=== PATIENT | female | born 1980 | race Caucasian/White ===

== ENCOUNTER 2017-05-08 06:46 | Inpatient (IN) | payer MEDICAID, OTHER ==
[2017-05-05 14:51] VITALS: BMI 28.4
[~2017-05-08] VITALS: Ht 160 cm; Wt 68.7 kg
[~2017-05-08 06:46] MED LIST: CEFAZOLIN 2 GM/50 ML (PMX) 50 ML IVPB SCH; GLIP-95 PO; LISI2.5T59 PO; METF1000 PO; SOD CHLORIDE 0.9% 1,000 ML IV SCH
[2017-05-08 07:35] LABS: BASOPHILS % 0.6 % (0.0-2.0); EOSINOPHILS % 0.6 % (0.0-7.0); HEMATOCRIT 32.7 % (37.0-47.0); HEMOGLOBIN 10.1 g/dl (12.0-16.0); LYMPHOCYTES # 1.3 10^3/ul (0.8-2.9); LYMPHOCYTES % 19.4 % (15.0-51.0); MEAN CORPUSCULAR HEMOGLOBIN 22.9 pg (29.0-33.0); MEAN CORPUSCULAR HGB CONC 30.9 g/dl (32.0-37.0); MEAN CORPUSCULAR VOLUME 74.1 fl (82.0-101.0); MEAN PLATELET VOLUME 10.4 fl (7.4-10.4); MONOCYTE # 0.6 10^3/ul (0.3-0.9); MONOCYTES % 9.1 % (0.0-11.0); NEUTROPHIL # 4.5 10^3/ul (1.6-7.5); NEUTROPHILS % 69.5 % (39.0-77.0); PLATELET COUNT 261 10^3/UL (140-415); RED BLOOD COUNT 4.41 10^6/ul (4.20-5.40); RED CELL DISTRIBUTION WIDTH 14.3 % (11.5-14.5); WHITE BLOOD COUNT 6.5 10^3/ul (4.8-10.8)
[2017-05-08 07:45] VITALS: Ht 160 cm; Wt 68.7 kg
[2017-05-08 07:50] VITALS: BP 119/80; PULSE 76; RESP 16
[2017-05-08 07:51] LABS: INR 0.87; PARTIAL THROMBOPLASTIN TIME 30.4 Sec (25.0-35.0); PROTIME 11.8 Sec (12.2-14.2); PT RATIO 0.9
[2017-05-08 07:56] LABS: ALBUMIN 4.3 g/dl (3.3-4.9); ALBUMIN/GLOBULIN RATIO 1.22; BILIRUBIN,INDIRECT 0.5 mg/dl (0-1.1); BILIRUBIN,TOTAL 0.5 mg/dl (0.2-1.3); TOTAL PROTEIN 7.8 g/dl (6.1-8.1)
[2017-05-08 08:02] LABS: CALCIUM 9.2 mg/dl (8.4-10.2); CREATININE 0.57 mg/dl (0.44-1.00); POTASSIUM 3.8 mmol/L (3.5-5.1)
[2017-05-08] MEDS ORDERED: INSULIN ASPART [NOVOLOG] 3 ML PEN SC ONE (08:10)
[2017-05-08] MEDS: morphine 2 MG INJ IV PRN ×2 (09:42→20:16)
[2017-05-08] MEDS ORDERED: ACETAMINOPHEN 500 MG TAB PO PRN (10:00)
[2017-05-08 12:13] VITALS: BP 116/69; RESP 16
[2017-05-08] MEDS ORDERED: GLUCOSE GEL 15 GRAM TUBE PO PRN ×2 (13:30)
[2017-05-08] MEDS ORDERED: DEXTROSE 50% 50 ML SYRINGE IV PRN ×2 (13:30)
[2017-05-08] MEDS ORDERED: ACETAMINOPHEN 325 MG TAB PO PRN (13:30)
[2017-05-08] MEDS ORDERED: ONDANSETRON 4 MG INJ IV PRN (13:30)
[2017-05-08] MEDS ORDERED: GLUCAGON 1 MG INJ IM PRN (13:30)
[2017-05-08] MEDS ORDERED: DOCUSATE SODIUM 100 MG CAP PO PRN (13:30)
[2017-05-08] MEDS ORDERED: GLUCOSE GEL 15 GRAM TUBE BUCCAL PRN (13:30)
--- NOTE | 2017-05-08 14:04 | HP ---
DATE OF ADMISSION: 05/08/2017 HISTORY OF PRESENT ILLNESS: The patient is a 37-year-old female, with diabetes which was controlled with metformin and glipizide. The patient was diagnosed with abdominal hernia and was scheduled to undergo hernia repair by Dr. Becerril. However, patient is noted to have elevated blood glucose at 294 on BNP with repeat fingerstick 323 and patient surgery was canceled and the patient was admitted for further evaluation and management to medical surgical floor. The patient denies any nausea, denies any fever or chills. Denies any chest pain, denies any shortness of breath. Denies diarrhea. PAST MEDICAL HISTORY: Positive for diabetes. PAST SURGICAL HISTORY: Patient status post-cholecystectomy fifteen years ago. FAMILY HISTORY: Patient has a mother with diabetes. SOCIAL HISTORY: Patient denies any tobacco use. Denies any alcohol use. Denies any illicit drug use. Patient lives at home with her . ALLERGIES: NO KNOWN ALLERGIES. MEDICATIONS: Include metformin, glipizide, and lisinopril. REVIEW OF SYSTEMS: Twelve point review of system is negative unless what is mentioned in HPI. PHYSICAL EXAMINATION: GENERAL: Well-developed, well-nourished female, currently is awake, alert in no acute distress. VITAL SIGNS: Temperature is 98.2, pulse is 75, blood pressure is 116/69, respiratory rate 16. Oxygen saturation 99 percent on room air. HEENT: Head is atraumatic, normocephalic. Pupils equal, round, reactive to light and accommodation. Oral mucosa is pink and moist. NECK: Supple. No cervical lymphadenopathy. No thyromegaly. CHEST: Lungs clear bilaterally. There is no rhonchi, wheezes, rales noted. CARDIOVASCULAR: Normal S1, S2. No murmurs, gallops, clicks, rubs noted. ABDOMEN: Round, soft, nondistended, nontender. Bowel sounds present. EXTREMITIES: No edema, clubbing, cyanosis. Pulses equal bilaterally 2+. SKIN: No rash. No petechiae noted. NEUROLOGICAL: Patient is awake, alert, and oriented x4. No focal deficits noted. Motor strength is 5/5 in all extremities. LABORATORY DATA: On admission CBC white blood cells 6.5, hemoglobin 10.1, hematocrit 32.7, platelets 261,000. CHEMISTRY: Sodium is 135, potassium 3.8, chloride 100, carbon dioxide 25, anion gap 13, BUN is 15, creatinine 0.58. Glucose 294. AST is 14, ALT 31, alkaline phosphate is 101. ASSESSMENT: Hyperglycemia in patient with diabetes. PLAN: We will up date hemoglobin A1c. The patient on 1800 ADA. ADA diet. Will control NovoLog per moderate sliding scale. Continue metformin. Lab date will obtain diabetes diabetic education consult. Further recommendations based on clinical course. Plan of care discussed with Dr. Schilling. DICTATED BY: Stefani Saha NP. Dictated By: Stefani Saha NP /[email or web address] /Document#: [id number]
[2017-05-08 14:15] VITALS: BP 103/57; RESP 16
[2017-05-08] MEDS: INSULIN ASPART [NOVOLOG] 3 ML PEN SC SCH ×5 (14:55→20:17)
[2017-05-08] MEDS: SOD CHLORIDE 0.9% 1,000 ML IV SCH (14:58)
[2017-05-08] MEDS: metFORMIN 500 MG TAB PO SCH (17:35)
[2017-05-08] MEDS ORDERED: INSULIN ASPART [NOVOLOG] 3 ML PEN SC SCH (18:00)
[2017-05-08 19:34] VITALS: BP 121/77; RESP 20
[2017-05-08] MEDS: FAMOTIDINE 20 MG TAB PO SCH (20:16)
[2017-05-09] MEDS ORDERED: ACCU-CHEK XX SCH ×3 (02:00)
[2017-05-09 02:09] VITALS: BP 117/73; RESP 20
[2017-05-09 05:27] LABS: BASOPHILS % 0.7 % (0.0-2.0); EOSINOPHILS # 0.1 10^3/ul (0.0-0.5); EOSINOPHILS % 1.9 % (0.0-7.0); HEMATOCRIT 31.8 % (37.0-47.0); HEMOGLOBIN 9.5 g/dl (12.0-16.0); LYMPHOCYTES # 1.7 10^3/ul (0.8-2.9); LYMPHOCYTES % 29.7 % (15.0-51.0); MEAN CORPUSCULAR HEMOGLOBIN 22.8 pg (29.0-33.0); MEAN CORPUSCULAR HGB CONC 29.9 g/dl (32.0-37.0); MEAN CORPUSCULAR VOLUME 76.3 fl (82.0-101.0); MEAN PLATELET VOLUME 10.1 fl (7.4-10.4); MONOCYTE # 0.6 10^3/ul (0.3-0.9); MONOCYTES % 10.1 % (0.0-11.0); NEUTROPHIL # 3.2 10^3/ul (1.6-7.5); NEUTROPHILS % 57.1 % (39.0-77.0); PLATELET COUNT 240 10^3/UL (140-415); RED BLOOD COUNT 4.17 10^6/ul (4.20-5.40); RED CELL DISTRIBUTION WIDTH 14.5 % (11.5-14.5); WHITE BLOOD COUNT 5.7 10^3/ul (4.8-10.8)
[2017-05-09] MEDS: SOD CHLORIDE 0.9% 1,000 ML IV SCH ×3 (05:30→15:47)
[2017-05-09 06:38] LABS: ALBUMIN 3.7 g/dl (3.3-4.9); ALBUMIN/GLOBULIN RATIO 1.23; BILIRUBIN,INDIRECT 0.4 mg/dl (0-1.1); BILIRUBIN,TOTAL 0.4 mg/dl (0.2-1.3); CALCIUM 8.7 mg/dl (8.4-10.2); CREATININE 0.63 mg/dl (0.44-1.00); POTASSIUM 4.1 mmol/L (3.5-5.1); TOTAL PROTEIN 6.7 g/dl (6.1-8.1)
[2017-05-09 07:38] VITALS: BP 132/82; RESP 16
[2017-05-09] MEDS: metFORMIN 500 MG TAB PO SCH ×2 (07:52→17:39)
[2017-05-09] MEDS: INSULIN ASPART [NOVOLOG] 3 ML PEN SC SCH ×7 (07:58→20:30)
[2017-05-09] MEDS ORDERED: glipiZIDE 10 MG TAB PO SCH (08:00)
[2017-05-09] MEDS ORDERED: INSULIN GLARGINE [LANtus] 3 ML PEN SC SCH (08:00)
[2017-05-09] MEDS: FAMOTIDINE 20 MG TAB PO SCH ×2 (08:23→20:31)
--- NOTE | 2017-05-09 13:17 | EN ---
Date/Time of Note Date/Time of Note DATE: 05/09/17 TIME: 13:16 Event Note Endocrinology Endocrinology Event Note 37-year-old common-law woman with a history of diabetes mellitus type 2 on metformin at home without other agents. Admitted for elective surgery and found to be quite hyperglycemic. Attempted to interview the patient however at this particular moment she declines to be interviewed once to speak to her partner/spouse over the phone. She asked that I returned later. BRIDGETTE NAIR MD May 09, 2017 13:17
[2017-05-09 13:43] VITALS: BP 115/78
[2017-05-09] MEDS: ACCU-CHEK XX SCH ×2 (14:24→19:50)
--- NOTE | 2017-05-09 15:30 | PN ---
Date/Time of Note Date/Time of Note DATE: 05/09/17 TIME: 15:23 Assessment/Plan VTE Prophylaxis VTE Prophylaxis Intervention: SCD's Lines/Catheters IV [facility] Peripheral IV Assessment/Plan Chief Complaint/Hosp Course Improved blood sugar, patient denies any nausea vomiting. Patient is informed about diabetic specialist consult. Problems: Assessment/Plan -Poorly controlled diabetes mellitus hyperglycemia, hemoglobin A1c 10.9. Dr. Jiang is asked to see patient in endocrinology consultation. Continue metformin , Lantus, pre-meal NovoLog, NovoLog per sliding scale. -Left lower quadrant abdominal wall hernia, patient is admitted for hernia repair with Dr. Becerril, however, surgery was canceled due to hyperglycemia. Further recommendations based on clinical course. Plan of care discussed with Dr. Schilling. Exam/Review of Systems Vital Signs Vitals Vital Signs Date Time Temp Pulse Resp B/P Pulse Ox O2 Delivery O2 Flow Rate FiO2 05/09/17 13:43 98.8 78 115/78 05/09/17 07:38 16 100 05/08/17 07:50 Room Air Intake and Output 05/08/17 05/08/17 05/09/17 15:00 23:00 07:00 Intake Total 1160 ml 600 ml Balance 1160 ml 600 ml Exam Constitutional: alert, oriented Neck: supple Respiratory: normal air movement Cardiovascular: nl pulses Gastrointestinal: non-tender, other (Abdominal wall hernia), soft Extremities: normal pulses Results Result Diagram: 05/09/17 0508 05/09/17 0508 Results 24 hrs Laboratory Tests Test 05/08/17 17:33 05/08/17 20:14 05/09/17 04:02 05/09/17 05:08 Bedside Glucose 193 249 H 191 White Blood Count 5.7 Red Blood Count 4.17 L Hemoglobin 9.5 L Hematocrit 31.8 L Mean Corpuscular Volume 76.3 L Mean Corpuscular Hemoglobin 22.8 L Mean Corpuscular Hemoglobin Concent 29.9 L Red Cell Distribution Width 14.5 Platelet Count 240 Mean Platelet Volume 10.1 Neutrophils % 57.1 Lymphocytes % 29.7 Monocytes % 10.1 Eosinophils % 1.9 Basophils % 0.7 Nucleated Red Blood Cells % 0.0 Neutrophils # 3.2 Lymphocytes # 1.7 Monocytes # 0.6 Eosinophils # 0.1 Basophils # 0.0 Nucleated Red Blood Cells # 0.0 Sodium Level 135 Potassium Level 4.1 Chloride Level 104 Carbon Dioxide Level 26 Anion Gap 9 # Blood Urea Nitrogen 11 Creatinine 0.63 Glucose Level 223 H Calcium Level 8.7 Total Bilirubin 0.4 Direct Bilirubin 0.00 Indirect Bilirubin 0.4 Aspartate Amino Transf (AST/SGOT) 14 L Alanine Aminotransferase (ALT/SGPT) 31 Alkaline Phosphatase 68 Total Protein 6.7 # Albumin 3.7 Globulin 3.00 Albumin/Globulin Ratio 1.23 Test 05/09/17 07:47 05/09/17 11:52 05/09/17 14:17 Bedside Glucose 221 H 158 169 Medications Medications Current Medications Morphine Sulfate (morphine) 2 mg Q3 PRN IV PAIN LEVEL 8-10 Last administered on 05/08/17 09:42; Admin Dose 2 MG; Start 05/08/17 at 09:35 Acetaminophen/ Hydrocodone Bitart ([place] (5/325)) 1 tab Q4H PRN PO PAIN LEVEL 4 -7; Start 05/08/17 at 10:00 Acetaminophen (Tylenol Tab) 500 mg Q4H PRN PO PAIN AND OR ELEVATED TEMP; Start 05/08/17 at 10:00 Miscellaneous Information 1 ea NOTE XX ; Start 05/08/17 at 13:30 Glucose (Glutose) 15 gm Q15M PRN PO DECREASED GLUCOSE; Start 05/08/17 at 13:30 Glucose (Glutose) 22.5 gm Q15M PRN PO DECREASED GLUCOSE; Start 05/08/17 at 13: 30 Dextrose (D50w Syringe) 25 ml Q15M PRN IV DECREASED GLUCOSE; Start 05/08/17 at 13:30 Dextrose (D50w Syringe) 50 ml Q15M PRN IV DECREASED GLUCOSE; Start 05/08/17 at 13:30 Glucagon (Glucagen) 1 mg Q15M PRN IM DECREASED GLUCOSE; Start 05/08/17 at 13:30 Glucose 15 gm 15 gm Q15M PRN BUCCAL DECREASED GLUCOSE; Start 05/08/17 at 13:30 Sodium Chloride (NS) 1,000 ml @ 40 mls/hr Q24H IV Last administered on 14:58; Admin Dose 40 MLS/HR; Start 05/08/17 at 13:11 Ondansetron HCl (Zofran Inj) 4 mg Q6H PRN IV NAUSEA AND/OR VOMITING; Start at 13:30 Acetaminophen (Tylenol Tab) 650 mg Q6H PRN PO PAIN LEVEL 1-3 OR FEVER; Start at 13:30 Morphine Sulfate (morphine) 2 mg Q4H PRN IV SEVERE PAIN LEVEL 7-10 Last administered on 05/08/17 20:16; Admin Dose 2 MG; Start 05/08/17 at 13:30 Docusate Sodium (Colace) 100 mg Q12H PRN PO CONSTIPATION; Start 05/08/17 at 13: 30 Famotidine (Pepcid) 20 mg Q12 PO Last administered on 05/09/17 08:23; Admin Dose 20 MG; Start 05/08/17 at 21:00 Diagnostic Test (Pha) (Accu-Chek) 1 ea 02 XX ; Start 05/10/17 at 02:00 Insulin Glargine (Lantus) 14 unit DAILY@08 SC ; Start 05/10/17 at 08:00 Diagnostic Test (Pha) (Accu-Chek) 1 ea 02 XX ; Start 05/10/17 at 02:00 RADHA POTTS May 09, 2017 15:30
--- NOTE | 2017-05-09 19:09 | CONS ---
Date/Time of Note Date/Time of Note DATE: 05/09/17 TIME: 18:53 Assessment/Plan Assessment/Plan Problems: (1) Pre-op evaluation Status: Acute Comment: This patient's sugar at the time of admission was out of control and therefore surgery was canceled in the direction of general surgery and I suspect with the input from anesthesia. Getting her sugars under control is actually relatively straightforward however her A1c is above 9 and I am not certain whether or not anesthesia will allow her to proceed with surgery. Her under a stable regimen and then it can be decided by the general surgeon and anesthesiologist when they want to operate on her. 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 I do not have access to the more recent CT scans to no more on these details. However if I assume that this information is absolutely correct then is reasonable to assume that all he can she have some degree of insulin insufficiency and therefore should be on combination therapy supplementing with insulin but she also may have pancreatic exocrine insufficiency and the attendant complications thereof. The traditional test is a fecal elastase 1 test however that is not part of our routine laboratory testing at this facility. I will order the other tests to evaluate this as well as look for any vitamin deficiencies. (3) Diabetes mellitus type 2 in nonobese Status: Chronic Comment: Her control is inadequate. Use of the secretory grog insulin with metformin is not inappropriate. Given the prior history of pancreatitis I would avoid GLP-1 drugs and DPP for drugs. Supplementing with insulin on as combination would be an appropriate maneuver in this setting. We do need to make sure she does have adequate pancreatic exocrine function. Consultation Date/Type/Reason Admit Date/Time May 08, 2017 at 09:10 Date of Consultation: May 09, 2017 Type of Consultation: Endocrinology Reason for Consultation Diabetes mellitus type 2 10 years duration out of control with admission A1c of 10.9 Referring Provider: SANDY LAUREN MD Hx of Present Illness 37-year-old female who recently moved here from the [facility] of [place]. She has a left lower quadrant abdominal wall incisional hernia she was electively scheduled for surgery. She had seen her regular primary care physician Dr. Clara Mina of [facility] 1 time. To the best of the patient's knowledge no labs were done. She had been diagnosed with this hernia at a hospital in [place]. She had also been seen by emergency room at [facility]. Again it is unclear on whether or not sugars were tested. The patient is unaware of what an A1c test is. She reports she done home blood glucose monitoring and her sugars have been consistently above 300. Constitutional: no complaints (Eyes fevers chills or sweats) Eyes: other (On blurring of vision at distance) ENT: no complaints Respiratory: no complaints Cardiovascular: no complaints Gastrointestinal: other (Note sometimes loose stool with fatty globules), pain (Left lower quadrant pain) Genitourinary: no complaints Musculoskeletal: no complaints Skin: no complaints Neurologic: no complaints Endocrine: polydypsia, polyuria Immunologic: no complaints Past Medical History 1) diabetes mellitus type 2; 2) history of gallstone pancreatitis with partial pancreatectomy; 3) abdominal wall left lower quadrant incisional hernia; 4) borderline elevation of blood pressure: 5) Ab0: 6) usual childhood diseases; 7) history of Varicella Medications; metformin 1 g twice daily, glipizide 10 mg twice daily, lisinopril 2.5 mg once a day. Allergies; no known medical allergies Past Surgical History 1) status post open cholecystectomy for gallstone pancreatitis with complications of peritonitis 2001: 2) status post partial pancreatectomy Family History Significant Family History: diabetes, hypertension Social History Alcohol Use: rarely Smoking Status: Never smoker Drug Use: none Exam/Review of Systems Vital Signs Vitals Vital Signs Date Time Temp Pulse Resp B/P Pulse Ox O2 Delivery O2 Flow Rate FiO2 05/09/17 13:43 98.8 78 115/78 05/09/17 07:38 16 100 05/08/17 07:50 Room Air Intake and Output 05/08/17 05/08/17 05/09/17 15:00 23:00 07:00 Intake Total 1160 ml 600 ml Balance 1160 ml 600 ml Exam Constitutional: alert, oriented Neck: non-tender, supple Respiratory: clear to auscultation, normal air movement Cardiovascular: nl pulses, regular rate and rhythm Gastrointestinal: nl liver, spleen, non-tender, other (Multiple abdominal scars including an upper scar the tremor transverses from the right to the left above the umbilicus in the sub-xiphoid space. In addition there are multiple other ports. There is a left lower quadrant abdominal ventral hernia at the site of 1 of the surgical scars), soft Musculoskeletal: nl extremities to inspection, nl gait and stance Extremities: normal pulses Neurological: [employer] II-XII intact, nl mental status, nl speech, nl strength Skin: nl turgor Results Result Diagram: 05/09/17 0508 05/09/17 0508 Results 24 hrs Laboratory Tests Test 05/08/17 20:14 05/09/17 04:02 05/09/17 05:08 05/09/17 07:47 Bedside Glucose 249 H 191 221 H White Blood Count 5.7 Red Blood Count 4.17 L Hemoglobin 9.5 L Hematocrit 31.8 L Mean Corpuscular Volume 76.3 L Mean Corpuscular Hemoglobin 22.8 L Mean Corpuscular Hemoglobin Concent 29.9 L Red Cell Distribution Width 14.5 Platelet Count 240 Mean Platelet Volume 10.1 Neutrophils % 57.1 Lymphocytes % 29.7 Monocytes % 10.1 Eosinophils % 1.9 Basophils % 0.7 Nucleated Red Blood Cells % 0.0 Neutrophils # 3.2 Lymphocytes # 1.7 Monocytes # 0.6 Eosinophils # 0.1 Basophils # 0.0 Nucleated Red Blood Cells # 0.0 Sodium Level 135 Potassium Level 4.1 Chloride Level 104 Carbon Dioxide Level 26 Anion Gap 9 # Blood Urea Nitrogen 11 Creatinine 0.63 Glucose Level 223 H Calcium Level 8.7 Total Bilirubin 0.4 Direct Bilirubin 0.00 Indirect Bilirubin 0.4 Aspartate Amino Transf (AST/SGOT) 14 L Alanine Aminotransferase (ALT/SGPT) 31 Alkaline Phosphatase 68 Total Protein 6.7 # Albumin 3.7 Globulin 3.00 Albumin/Globulin Ratio 1.23 Test 05/09/17 11:52 05/09/17 14:17 05/09/17 17:30 Bedside Glucose 158 169 161 Medications Medications Current Medications Morphine Sulfate (morphine) 2 mg Q3 PRN IV PAIN LEVEL 8-10 Last administered on 05/08/17t 09:42; Admin Dose 2 MG; Start 05/08/17 at 09:35 Acetaminophen/ Hydrocodone Bitart ([place] (5/325)) 1 tab Q4H PRN PO PAIN LEVEL 4 -7; Start 05/08/17 at 10:00 Acetaminophen (Tylenol Tab) 500 mg Q4H PRN PO PAIN AND OR ELEVATED TEMP; Start 05/08/17 at 10:00 Miscellaneous Information 1 ea NOTE XX ; Start 05/08/17 at 13:30 Glucose (Glutose) 15 gm Q15M PRN PO DECREASED GLUCOSE; Start 05/08/17 at 13:30 Glucose (Glutose) 22.5 gm Q15M PRN PO DECREASED GLUCOSE; Start 05/08/17 at 13: 30 Dextrose (D50w Syringe) 25 ml Q15M PRN IV DECREASED GLUCOSE; Start 05/08/17 at 13:30 Dextrose (D50w Syringe) 50 ml Q15M PRN IV DECREASED GLUCOSE; Start 05/08/17 at 13:30 Glucagon (Glucagen) 1 mg Q15M PRN IM DECREASED GLUCOSE; Start 05/08/17 at 13:30 Glucose 15 gm 15 gm Q15M PRN BUCCAL DECREASED GLUCOSE; Start 05/08/17 at 13:30 Sodium Chloride (NS) 1,000 ml @ 40 mls/hr Q24H IV Last administered on 15:47; Admin Dose 40 MLS/HR; Start 05/08/17 at 13:11 Ondansetron HCl (Zofran Inj) 4 mg Q6H PRN IV NAUSEA AND/OR VOMITING; Start at 13:30 Acetaminophen (Tylenol Tab) 650 mg Q6H PRN PO PAIN LEVEL 1-3 OR FEVER; Start at 13:30 Morphine Sulfate (morphine) 2 mg Q4H PRN IV SEVERE PAIN LEVEL 7-10 Last administered on 05/08/17 20:16; Admin Dose 2 MG; Start 05/08/17 at 13:30 Docusate Sodium (Colace) 100 mg Q12H PRN PO CONSTIPATION; Start 05/08/17 at 13: 30 Famotidine (Pepcid) 20 mg Q12 PO Last administered on 05/09/17 08:23; Admin Dose 20 MG; Start 05/08/17 at 21:00 Diagnostic Test (Pha) (Accu-Chek) 1 ea 02 XX ; Start 05/10/17 at 02:00 Insulin Glargine (Lantus) 14 unit DAILY@08 SC ; Start 05/10/17 at 08:00 Diagnostic Test (Pha) (Accu-Chek) 1 ea 02 XX ; Start 05/10/17 at 02:00 Copies To: CC: SANDY LAUREN MD, JOSHUA A MD May 09, 2017 19:04
[2017-05-09] MEDS: morphine 2 MG INJ IV PRN (19:21)
[2017-05-09 19:31] VITALS: BP 124/81; RESP 20
[2017-05-09 19:58] LABS: IRON 26 ug/dl (35-150)
[2017-05-09 20:08] LABS: TOTAL IRON BINDING CAPACITY 492 ug/dl (241-421)
[2017-05-09 20:35] LABS: FERRITIN 8.2 ng/ml (6.2-137.0)
[2017-05-10 01:59] VITALS: BP 111/63; RESP 20
[2017-05-10] MEDS: ACCU-CHEK XX SCH ×5 (02:00→19:50)
[2017-05-10] MEDS: HYDROCODONE/APAP (5/325) TAB PO PRN ×2 (06:21→13:41)
[2017-05-10 06:38] LABS: CALCIUM 8.7 mg/dl (8.4-10.2); CREATININE 0.6 mg/dl (0.44-1.00); POTASSIUM 3.6 mmol/L (3.5-5.1)
[2017-05-10 07:42] VITALS: BP 117/56; RESP 16
[2017-05-10] MEDS: metFORMIN 500 MG TAB PO SCH ×2 (07:56→17:06)
[2017-05-10] MEDS: INSULIN GLARGINE [LANtus] 3 ML PEN SC SCH (08:01)
[2017-05-10] MEDS: INSULIN ASPART [NOVOLOG] 3 ML PEN SC SCH ×6 (08:01→20:24)
[2017-05-10] MEDS: FAMOTIDINE 20 MG TAB PO SCH ×2 (10:30→20:21)
--- NOTE | 2017-05-10 12:28 | CONS ---
Date/Time of Note Date/Time of Note DATE: 05/10/17 TIME: 12:22 Assessment/Plan Assessment/Plan Chief Complaint/Hosp Course 37-year-old female who recently moved here from the state of [place]. She has a left lower quadrant abdominal wall incisional hernia she was electively scheduled for surgery. She had seen her regular primary care physician Dr. Clara Mina of [facility] 1 time. To the best of the patient's knowledge no labs were done. She had been diagnosed with this hernia at a hospital in [place]. She had also been seen by emergency room at [facility]. Again it is unclear on whether or not sugars were tested. The patient is unaware of what an A1c test is. She reports she done home blood glucose monitoring and her sugars have been consistently above 300. Problems: (1) Iron deficiency anemia Status: Chronic Comment: Replete parenterally now given that with hernia constipating agents theoretically may be a disadvantage Qualifiers: Iron deficiency anemia type: chronic blood loss Qualified Code: D50.0 - Iron deficiency anemia due to chronic blood loss (2) Pre-op evaluation Status: Acute Comment: Sugars are better, need input from anesthesia when they are comfortable to proceed. For now I assume with A1C above 10 they want improvement and will plan discharge on outpatient regimen. If has surgery now hold glipizide and go back to meal time insulin till discharge (3) Diabetes mellitus type 2 in nonobese Status: Chronic Comment: Would advocate for once a day basal insulin in this patient who STATES that she would not be comfortable with multiple daily injection regimen. In addition complete evaluation for possible Pancreatic Exocrine Insufficiency! Consultation Date/Type/Reason Admit Date/Time May 08, 2017 at 09:10 Initial Consult Date 05/09/17 Type of Consultation: Endocrinology Reason for Consultation DM2 with poor control; Iron deficit anemia; Incisional hernia Referring Provider: SANDY LAUREN MD 24 HR Interval Summary Constitutional: improved Exam/Review of Systems Vital Signs Vitals Vital Signs Date Time Temp Pulse Resp B/P Pulse Ox O2 Delivery O2 Flow Rate FiO2 05/10/17 07:42 98.3 65 16 117/56 100 05/08/17 07:50 Room Air Intake and Output 05/09/17 05/09/17 05/10/17 15:00 23:00 07:00 Intake Total 2780 ml 1280 ml Balance 2780 ml 1280 ml Exam Constitutional: alert, oriented Neck: non-tender, supple Respiratory: clear to auscultation, normal air movement Results Result Diagram: 05/09/17 0508 05/10/17 0529 Results 24 hrs Laboratory Tests Test 05/09/17 14:17 05/09/17 17:30 05/09/17 19:22 05/09/17 20:27 Bedside Glucose 169 161 165 Iron Level 26 L Total Iron Binding Capacity 492 H Percent Iron Saturation 5 L Ferritin 8.2 Vitamin B12 Level 324 Hepatitis B Surface Antigen NEGATIVE Hepatitis C Antibody NEGATIVE Test 05/10/17 05:29 Sodium Level 135 Potassium Level 3.6 Chloride Level 104 Carbon Dioxide Level 27 Anion Gap 8 Blood Urea Nitrogen 10 Creatinine 0.60 Glucose Level 145 # Calcium Level 8.7 Medications Medications Current Medications Morphine Sulfate (morphine) 2 mg Q3 PRN IV PAIN LEVEL 8-10 Last administered on 05/08/17 09:42; Admin Dose 2 MG; Start 05/08/17 at 09:35 Acetaminophen/ Hydrocodone Bitart ([place] (5/325)) 1 tab Q4H PRN PO PAIN LEVEL 4 -7 Last administered on 05/10/17 06:21; Admin Dose 1 TAB; Start 05/08/17 at 10: 00 Acetaminophen (Tylenol Tab) 500 mg Q4H PRN PO PAIN AND OR ELEVATED TEMP; Start 05/08/17 at 10:00 Miscellaneous Information 1 ea NOTE XX ; Start 05/08/17 at 13:30 Glucose (Glutose) 15 gm Q15M PRN PO DECREASED GLUCOSE; Start 05/08/17 at 13:30 Glucose (Glutose) 22.5 gm Q15M PRN PO DECREASED GLUCOSE; Start 05/08/17 at 13: 30 Dextrose (D50w Syringe) 25 ml Q15M PRN IV DECREASED GLUCOSE; Start 05/08/17 at 13:30 Dextrose (D50w Syringe) 50 ml Q15M PRN IV DECREASED GLUCOSE; Start 05/08/17 at 13:30 Glucagon (Glucagen) 1 mg Q15M PRN IM DECREASED GLUCOSE; Start 05/08/17 at 13:30 Glucose 15 gm 15 gm Q15M PRN BUCCAL DECREASED GLUCOSE; Start 05/08/17 at 13:30 Sodium Chloride (NS) 1,000 ml @ 40 mls/hr Q24H IV Last administered on 05:30; Admin Dose 40 MLS/HR; Start 05/08/17 at 13:11 Ondansetron HCl (Zofran Inj) 4 mg Q6H PRN IV NAUSEA AND/OR VOMITING; Start at 13:30 Acetaminophen (Tylenol Tab) 650 mg Q6H PRN PO PAIN LEVEL 1-3 OR FEVER; Start at 13:30 Morphine Sulfate (morphine) 2 mg Q4H PRN IV SEVERE PAIN LEVEL 7-10 Last administered on 05/09/17 19:21; Admin Dose 2 MG; Start 05/08/17 at 13:30 Docusate Sodium (Colace) 100 mg Q12H PRN PO CONSTIPATION; Start 05/08/17 at 13: 30 Famotidine (Pepcid) 20 mg Q12 PO Last administered on 05/10/17 10:30; Admin Dose 20 MG; Start 05/08/17 at 21:00 Diagnostic Test (Pha) (Accu-Chek) 1 ea 02 XX ; Start 05/10/17 at 02:00 Insulin Glargine (Lantus) 14 unit DAILY@08 SC Last administered on 05/10/17 08 :01; Admin Dose 14 UNIT; Start 05/10/17 at 08:00 Diagnostic Test (Pha) (Accu-Chek) 1 ea 02 XX ; Start 05/10/17 at 02:00 Ferrous Sulfate 325 mg 325 mg DAILY PO ; Start 05/10/17 at 12:30 Ferric Sodium Gluconate Complex/ Sodium Chloride (Ferrlecit/NS) 110 ml @ 100 mls/hr Q24H IVPB ; Start 05/10/17 at 12:30; Stop 05/12/17 at 13:35 BRIDGETTE NAIR MD May 10, 2017 12:28
[2017-05-10] MEDS ORDERED: NA PHOSPHATE/BIPHOS 133 ML ENEMA PR ONE (12:30)
[2017-05-10] MEDS ORDERED: MAGNESIUM HYDROXIDE 30ML CUP PO ONE (12:30)
[2017-05-10] MEDS: FERROUS SULFATE (EC) 325 MG TAB PO SCH (13:42)
[2017-05-10] MEDS: SOD FERRIC GLUC COMPLX 125 MG in SOD CHLORIDE 0.9% 100 ML IVPB SCH (14:31)
[2017-05-10 14:34] VITALS: BP 120/80; RESP 16
--- NOTE | 2017-05-10 15:00 | PN ---
Date/Time of Note Date/Time of Note DATE: 05/10/17 TIME: 14:58 Assessment/Plan VTE Prophylaxis VTE Prophylaxis Intervention: SCD's Lines/Catheters IV Catheter Type (from Nrsg): Peripheral IV Assessment/Plan Chief Complaint/Hosp Course Blood sugar is better controlled patient denies any nausea and vomiting. Assessment/Plan -Poorly controlled diabetes mellitus hyperglycemia, hemoglobin A1c 10.9. Dr. Jiang is asked to see patient in endocrinology consultation. Continue metformin , Lantus, pre-meal NovoLog, NovoLog per sliding scale. -Left lower quadrant abdominal wall hernia, patient is admitted for hernia repair with Dr. Becerril, however, surgery was canceled due to hyperglycemia. Further recommendations based on clinical course. Plan of care discussed with Dr. Schilling. Problems: Exam/Review of Systems Vital Signs Vitals Vital Signs Date Time Temp Pulse Resp B/P Pulse Ox O2 Delivery O2 Flow Rate FiO2 05/10/17 14:34 98.7 75 16 120/80 97 05/08/17 07:50 Room Air Intake and Output 05/09/17 05/09/17 05/10/17 15:00 23:00 07:00 Intake Total 2780 ml 1280 ml Balance 2780 ml 1280 ml Exam Constitutional: alert, oriented Neck: supple Respiratory: normal air movement Cardiovascular: nl pulses Gastrointestinal: non-tender, other (Abdominal wall hernia), soft Extremities: normal pulses Results Result Diagram: 05/09/17 0508 05/10/17 0529 Results 24 hrs Laboratory Tests Test 05/09/17 17:30 05/09/17 19:22 05/09/17 20:27 05/10/17 05:29 Bedside Glucose 161 165 Iron Level 26 L Total Iron Binding Capacity 492 H Percent Iron Saturation 5 L Ferritin 8.2 Vitamin B12 Level 324 Hepatitis B Surface Antigen NEGATIVE Hepatitis C Antibody NEGATIVE Sodium Level 135 Potassium Level 3.6 Chloride Level 104 Carbon Dioxide Level 27 Anion Gap 8 Blood Urea Nitrogen 10 Creatinine 0.60 Glucose Level 145 # Calcium Level 8.7 Test 05/10/17 07:51 05/10/17 10:34 05/10/17 12:02 05/10/17 14:37 Bedside Glucose 178 266 H 177 138 Medications Medications Current Medications Morphine Sulfate (morphine) 2 mg Q3 PRN IV PAIN LEVEL 8-10 Last administered on 05/08/17t 09:42; Admin Dose 2 MG; Start 05/08/17 at 09:35 Acetaminophen/ Hydrocodone Bitart ([place] (5/325)) 1 tab Q4H PRN PO PAIN LEVEL 4 -7 Last administered on 05/10/17 13:41; Admin Dose 1 TAB; Start 05/08/17 at 10: 00 Acetaminophen (Tylenol Tab) 500 mg Q4H PRN PO PAIN AND OR ELEVATED TEMP; Start 05/08/17 at 10:00 Miscellaneous Information 1 ea NOTE XX ; Start 05/08/17 at 13:30 Glucose (Glutose) 15 gm Q15M PRN PO DECREASED GLUCOSE; Start 05/08/17 at 13:30 Glucose (Glutose) 22.5 gm Q15M PRN PO DECREASED GLUCOSE; Start 05/08/17 at 13: 30 Dextrose (D50w Syringe) 25 ml Q15M PRN IV DECREASED GLUCOSE; Start 05/08/17 at 13:30 Dextrose (D50w Syringe) 50 ml Q15M PRN IV DECREASED GLUCOSE; Start 05/08/17 at 13:30 Glucagon (Glucagen) 1 mg Q15M PRN IM DECREASED GLUCOSE; Start 05/08/17 at 13:30 Glucose 15 gm 15 gm Q15M PRN BUCCAL DECREASED GLUCOSE; Start 05/08/17 at 13:30 Sodium Chloride (NS) 1,000 ml @ 40 mls/hr Q24H IV Last administered on 05:30; Admin Dose 40 MLS/HR; Start 05/08/17 at 13:11 Ondansetron HCl (Zofran Inj) 4 mg Q6H PRN IV NAUSEA AND/OR VOMITING; Start at 13:30 Acetaminophen (Tylenol Tab) 650 mg Q6H PRN PO PAIN LEVEL 1-3 OR FEVER; Start at 13:30 Morphine Sulfate (morphine) 2 mg Q4H PRN IV SEVERE PAIN LEVEL 7-10 Last administered on 05/09/17 19:21; Admin Dose 2 MG; Start 05/08/17 at 13:30 Docusate Sodium (Colace) 100 mg Q12H PRN PO CONSTIPATION; Start 05/08/17 at 13: 30 Famotidine (Pepcid) 20 mg Q12 PO Last administered on 05/10/17 10:30; Admin Dose 20 MG; Start 05/08/17 at 21:00 Diagnostic Test (Pha) (Accu-Chek) 1 ea 02 XX ; Start 05/10/17 at 02:00 Insulin Glargine (Lantus) 14 unit DAILY@08 SC Last administered on 05/10/17 08 :01; Admin Dose 14 UNIT; Start 05/10/17 at 08:00 Diagnostic Test (Pha) (Accu-Chek) 1 ea 02 XX ; Start 05/10/17 at 02:00 Ferrous Sulfate 325 mg 325 mg DAILY PO Last administered on 05/10/17 13:42; Admin Dose 325 MG; Start 05/10/17 at 12:30 Ferric Sodium Gluconate Complex/ Sodium Chloride (Ferrlecit/NS) 110 ml @ 100 mls/hr Q24H IVPB Last administered on 05/10/17 14:31; Admin Dose 100 MLS/HR; Start 05/10/17 at 12:30; Stop 05/12/17 at 13:35 RADHA POTTS May 10, 2017 15:00
--- NOTE | 2017-05-10 15:31 | CONS ---
DATE OF ADMISSION: 05/10/2017 DATE OF CONSULTATION: 05/10/2017 REASON FOR CONSULTATION: Abdominal wall hernia, diabetes mellitus. Thank you, Dr. Schilling, for this consultation. This is a 29-year-old female, who has been known to have diabetes mellitus since 2000 after she had open cholecystectomy and partial pancreatectomy for gallstone pancreatitis. She has been on metformin and glipizide. She was seen by Dr. Becerril in the office and was scheduled for left lower quadrant or possibly left flank incisional hernia operation. When she was admitted they found that her blood sugar was 294, and hemoglobin A1c was 10.5. Therefore the anesthesiologist preferred not to put the patient asleep. The patient was admitted for further workup and stabilization and later on, consultation from boiler erector was obtained to evaluate the patient for this matter. She was seen by Dr. Jiang and recommendation has been made which is documented in the chart. Now they want to see if the patient is okay for operation at this admission or should she be discharged to be followed when she is more stabilized to have the operation. PAST MEDICAL HISTORY: As mentioned, history of diabetes mellitus. PAST SURGICAL HISTORY: Status post cholecystectomy and partial mastectomy. Also, patient has had 2 vaginal deliveries. FAMILY HISTORY: Mother has diabetes. SOCIAL HISTORY: The patient denies any tobacco use. Also denies any alcohol use. ALLERGIES: NONE KNOWN. MEDICATIONS: 1. Metformin. 2. Glipizide. PHYSICAL EXAMINATION: The patient is a well developed, well- nourished female, does not appear in acute distress. VITAL SIGNS: Today, temperature 98.3, heart rate 64, respirations 16, blood pressure 117/56, saturation 100 percent on room air. LABORATORY: WBC 5700, hemoglobin 9.5, and hematocrit 31.8. The indices show evidence of hypochromic anemia. Platelet count is 240. Today's chemistry, sodium 7.7, potassium normal. BUN and creatinine normal. Blood sugar on one occasion 178 and another occasion 266. PHYSICAL EXAMINATION: HEENT: Head normocephalic. Pupils equally round, reactive to light. The extraocular muscles full range of motion. NECK: Trachea is in midline. HEART: Regular rhythm, no murmur. LUNGS: Clear to auscultation. ABDOMEN: Slightly distended. It is a very large long transverse bilateral subcostal incision of the scar which patient stated that is the only time that they operated on her for the operation, but there are multiple small scars above and below and lateral to the incision, which is the site of the placement of the drains. Below the left corner of the transverse scar, about 5 cm below that and lateral to that appears to be a defect in the abdominal wall to which some tissue is protruding, but this content of the hernia is easily reducible and is not incarcerated or strangulated. EXTREMITIES: Within normal limits. IMPRESSION: There is a left-sided flank or lower quadrant incisional hernia that needs to be fixed, but the patient has uncontrolled diabetes mellitus. So, the suggestion is that the patient be discharged per the recommendation of Dr. Jiang, boiler erector for control of the diabetes with once a day insulin. The dosages is written in the computer chart and also continue metformin and glipizide. When she is more stabilized, maybe in two or three weeks, she will call Dr. Becerril' office and go out there and make appointment for elective operation while blood sugar is under better control. The matter was discussed with the patient and also with the other woman who stated that she was her and I explained to her too. Dictated By: Alejandro Carlin MD /alba/keyon /Document#: [id number] DIONICIO
[2017-05-10] MEDS: glipiZIDE 5 MG TAB PO SCH (17:06)
[2017-05-10 19:36] VITALS: BP 118/77; RESP 20
[2017-05-10] MEDS: SOD CHLORIDE 0.9% 1,000 ML IV SCH (20:19)
[2017-05-11] MEDS: morphine 2 MG INJ IV PRN ×2 (00:01→09:02)
[2017-05-11] MEDS: ACCU-CHEK XX SCH ×4 (01:10→14:32)
[2017-05-11 02:05] VITALS: BP 102/62; RESP 20
[2017-05-11 07:22] VITALS: BP 109/70; RESP 18
[2017-05-11] MEDS: metFORMIN 500 MG TAB PO SCH ×2 (07:49→17:14)
[2017-05-11] MEDS: glipiZIDE 5 MG TAB PO SCH ×2 (07:49→17:14)
[2017-05-11] MEDS: INSULIN ASPART [NOVOLOG] 3 ML PEN SC SCH ×3 (07:52→17:24)
[2017-05-11] MEDS: INSULIN GLARGINE [LANtus] 3 ML PEN SC SCH (08:16)
[2017-05-11] MEDS: FERROUS SULFATE (EC) 325 MG TAB PO SCH (09:01)
[2017-05-11] MEDS: FAMOTIDINE 20 MG TAB PO SCH (09:01)
[2017-05-11] MEDS: SOD FERRIC GLUC COMPLX 125 MG in SOD CHLORIDE 0.9% 100 ML IVPB SCH (11:56)
[2017-05-11 13:48] VITALS: BP 116/76; RESP 18
--- NOTE | 2017-05-11 13:50 | CONS ---
Date/Time of Note Date/Time of Note DATE: 05/11/17 TIME: 13:46 Assessment/Plan Assessment/Plan Chief Complaint/Hosp Course 37-year-old female who recently moved here from the state of [place]. She has a left lower quadrant abdominal wall incisional hernia she was electively scheduled for surgery. She had seen her regular primary care physician Dr. Clara Mina of [facility] 1 time. To the best of the patient's knowledge no labs were done. She had been diagnosed with this hernia at a hospital in [place]. She had also been seen by emergency room at [facility]. Again it is unclear on whether or not sugars were tested. The patient is unaware of what an A1c test is. She reports she done home blood glucose monitoring and her sugars have been consistently above 300. Problems: (1) Diabetes mellitus type 2 in nonobese Status: Chronic Comment: Excellent response to treatment. 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 Referring Provider: SANDY LAUREN MD 24 HR Interval Summary Constitutional: no complaints Detailed Summary ENT: no complaints Respiratory: no complaints Exam/Review of Systems Vital Signs Vitals Vital Signs Date Time Temp Pulse Resp B/P Pulse Ox O2 Delivery O2 Flow Rate FiO2 05/11/17 07:22 98.7 80 18 109/70 100 05/08/17 07:50 Room Air Intake and Output 05/10/17 05/10/17 05/11/17 15:00 23:00 07:00 Intake Total 2750 ml 200 ml Balance 2750 ml 200 ml Exam no changes Results Result Diagram: 05/09/17 0508 05/10/17 0529 Results 24 hrs Laboratory Tests Test 05/10/17 14:37 05/10/17 17:02 05/10/17 20:22 05/11/17 06:53 Bedside Glucose 138 139 140 Lab Scanned Report LAB Test 05/11/17 07:51 05/11/17 10:17 05/11/17 11:57 Bedside Glucose 115 130 100 Medications Medications Current Medications Morphine Sulfate (morphine) 2 mg Q3 PRN IV PAIN LEVEL 8-10 Last administered on 05/11/17 09:02; Admin Dose 2 MG; Start 05/08/17 at 09:35 Acetaminophen/ Hydrocodone Bitart ([place] (5/325)) 1 tab Q4H PRN PO PAIN LEVEL 4 -7 Last administered on 05/10/17 13:41; Admin Dose 1 TAB; Start 05/08/17 at 10: 00 Acetaminophen (Tylenol Tab) 500 mg Q4H PRN PO PAIN AND OR ELEVATED TEMP; Start 05/08/17 at 10:00 Miscellaneous Information 1 ea NOTE XX ; Start 05/08/17 at 13:30 Glucose (Glutose) 15 gm Q15M PRN PO DECREASED GLUCOSE; Start 05/08/17 at 13:30 Glucose (Glutose) 22.5 gm Q15M PRN PO DECREASED GLUCOSE; Start 05/08/17 at 13: 30 Dextrose (D50w Syringe) 25 ml Q15M PRN IV DECREASED GLUCOSE; Start 05/08/17 at 13:30 Dextrose (D50w Syringe) 50 ml Q15M PRN IV DECREASED GLUCOSE; Start 05/08/17 at 13:30 Glucagon (Glucagen) 1 mg Q15M PRN IM DECREASED GLUCOSE; Start 05/08/17 at 13:30 Glucose 15 gm 15 gm Q15M PRN BUCCAL DECREASED GLUCOSE; Start 05/08/17 at 13:30 Sodium Chloride (NS) 1,000 ml @ 40 mls/hr Q24H IV Last administered on 20:19; Admin Dose 40 MLS/HR; Start 05/08/17 at 13:11 Ondansetron HCl (Zofran Inj) 4 mg Q6H PRN IV NAUSEA AND/OR VOMITING; Start at 13:30 Acetaminophen (Tylenol Tab) 650 mg Q6H PRN PO PAIN LEVEL 1-3 OR FEVER; Start at 13:30 Morphine Sulfate (morphine) 2 mg Q4H PRN IV SEVERE PAIN LEVEL 7-10 Last administered on 05/11/17 00:01; Admin Dose 2 MG; Start 05/08/17 at 13:30 Docusate Sodium (Colace) 100 mg Q12H PRN PO CONSTIPATION; Start 05/08/17 at 13: 30 Famotidine (Pepcid) 20 mg Q12 PO Last administered on 05/11/17 09:01; Admin Dose 20 MG; Start 05/08/17 at 21:00 Diagnostic Test (Pha) (Accu-Chek) 1 ea 02 XX ; Start 05/10/17 at 02:00 Insulin Glargine (Lantus) 14 unit DAILY@08 SC Last administered on 05/11/17 08 :16; Admin Dose 14 UNIT; Start 05/10/17 at 08:00 Diagnostic Test (Pha) (Accu-Chek) 1 ea 02 XX ; Start 05/10/17 at 02:00 Ferrous Sulfate 325 mg 325 mg DAILY PO Last administered on 05/11/17 09:01; Admin Dose 325 MG; Start 05/10/17 at 12:30 Ferric Sodium Gluconate Complex/ Sodium Chloride (Ferrlecit/NS) 110 ml @ 100 mls/hr Q24H IVPB Last administered on 05/11/17 11:56; Admin Dose 100 MLS/HR; Start 05/10/17 at 12:30; Stop 05/12/17 at 13:35 BRIDGETTE NAIR MD May 11, 2017 13:49
--- NOTE | 2017-05-11 17:04 | PDOCDIS ---
Discharge Instructions CONDITION Patient Condition: Good HOME CARE INSTRUCTIONS: Special Diet: 1800 ada ACTIVITY: Activity Restrictions: Avoid heavy lifting Avoid Heavy Housework FOLLOW UP/APPOINTMENTS Follow-up Plan Dr. Becerril in 1-2 week PMD within a week SANDY LAUREN MD May 11, 2017 17:04
[2017-05-11] MEDS ORDERED: METF500T PO (17:10)
[2017-05-11] MEDS ORDERED: GLIP5TAB13 PO (17:10)
== END 2017-05-11 18:00 | disposition home or self-care (01) | DRG 639 ==
LOC: SDS 06:46 → MS2 09:10 → OBSVTOIN 05-10 12:48
PROVIDERS: ADMIT Surgery Surgical Oncology; ATTEND Surgery Surgical Oncology
DX: E11.65 Type 2 diabetes mellitus with hyperglycemia (principal); D50.9 Iron deficiency anemia, unspecified; Z79.84 Long term (current) use of oral hypoglycemic drugs; K43.2 Incisional hernia without obstruction or gangrene
CPT/HCPCS: 80048; 80053; 82306; 82607; 82728; 82962; 83036; 83540; 84488; 85025; 85610; 85730; 86803; 87340; G0378; J1815; J2270; J2916; J7030